=== PATIENT | female | born 1965 | race Caucasian/White ===

== ENCOUNTER → 2023-12-28 06:27 | Day surgery (SDC) | payer OTHER, SELFPAY | LOC: GI 06:27 | PROVIDERS: ATTENDING PHYSICIAN Internal Medicine Gastroenterology | DX: Z12.11 Encounter for screening for malignant neoplasm of colon (principal); D12.2 Benign neoplasm of ascending colon; D12.7 Benign neoplasm of rectosigmoid junction; K57.30 Diverticulosis of large intestine without perforation or abscess without bleeding; K62.1 Rectal polyp | CPT/HCPCS: 45385; 45380; 88305 ==

== ENCOUNTER 2024-01-03 05:41 | Emergency (ER) | payer OTHER, SELFPAY ==
[2024-01-03 05:43] VITALS: BP 130/96
[2024-01-03 07:11] LABS: Urine Albumin 1+ (Neg - Trace); Urine Bilirubin Negative (Negative); Urine Character Very Cloudy (Clear); Urine Color Yellow; Urine Glucose Negative (Negative); Urine Ketone Negative (Negative); Urine Leukocyte 2+ (Negative); Urine Nitrite Negative (Negative); Urine Occult Blood 4+ (Negative); Urine Urobilinogen Negative (Neg - 1+)
--- NOTE | 2024-01-03 07:16 | ED.GENMED ---
History of Present Illness
General
Chief Complaint: Urinary Symptoms
Source: patient
Exam Limitations: none
Time Seen by Provider: 01/03/24 07:06
Travel History
Have you had any contact with someone who has COVID-19?: No
Do you have any symptoms of coronavirus? Fever > 100 degrees, chills, cough, shortness of breath, sore throat, loss of taste or smell, muscle aches, or headache?: No
History of Present Illness
History of Present Illness:
58-year-old female on Eliquis for history of atrial fibrillation requiring recent ablation presents complaining of urinary symptoms for 2 to 3 days with burning and urgency. She notes a sacral pain as well. She denies fevers but does note chills
no sweats. She has a history of UTIs in the past. She does have history of sepsis secondary to UTI in the past. No prior history of kidney stones. She is on metoprolol and levothyroxine otherwise. No other complaints at this time
Past History
Past History
ED Past Medical History: Hypothyroidism
ED Past Surgical History: Tonsilectomy
Social History
Tobacco: Non-smoker
Alcohol: Occasional
Drug: None
Personal:
Living: with family
Employment: Employed
Phy Exam
Physical Exam
Physical Exam:
General: Well-appearing female nontoxic no acute respiratory distress
HEENT: Normocephalic atraumatic neck is supple
Heart: Regular rate and rhythm no murmurs lungs: Clear to auscultation bilaterally no wheeze
Abdomen is soft with mild suprapubic tenderness nondistended no guarding or rebound no costovertebral angle tenderness
Extremities: No cyanosis
Course
Orders/Labs/Results
Orders:
Orders
01/03/24 05:51
Urinalysis Urgent
Date Specimen was Collected: 01/03/24
Time Specimen was Collected: 05:47
Urine Microscopic Urgent
Date Specimen was Collected: 02/20/24
Time Specimen was Collected: 05:47
01/03/24 07:36
Complete Blood Count/With Diff Urgent
Comprehensive Metabolic Panel Urgent
01/03/24 08:08
CefTRIAXone [Rocephin] 1,000 mg IV NOW STA
Abnormal Lab Results
01/03/24 01/03/24
05:51 07:36
RBC 3.57 L 10^6/uL
(4.20-5.40)
Hct 34.1 L %
(37.0-47.0)
MCH 33.6 H pg
(27.0-31.0)
MPV 10.5 H fL
(7.4-10.4)
Absolute Neuts (auto) 6.6 H 10^3/uL
(1.4-6.5)
Absolute Monos (auto) 1.0 H 10^3/uL
(0.1-0.6)
Lymphocytes % 14.6 L %
(20.5-51.1)
Monocytes % 10.4 H %
(1.7-9.3)
Carbon Dioxide 31 H mmol/L
(22-30)
Glucose 100 H mg/dl
(70-99)
AST 38 H U/L
(14-36)
ALT 40 H U/L
(0-35)
Total Protein 5.8 L g/dl
(6.3-8.2)
Urine Occult Blood 4+ A
(Negative)
Ur Leukocyte Esterase 2+ A
(Negative)
Urine RBC 60-70 A /HPF
(0-2)
Urine WBC 26-30 A /HPF
(0-5)
Urine Bacteria Few A
(Negative)
Urine Albumin 1+ A
(Neg - Trace)
01/03/24 07:36
01/03/24 07:36
Vital Signs
Initial and Last Documented VS:
Initial Vital Signs
Temp Pulse Resp BP Pulse Ox
98 F 82 18 130/96 99
01/03/24 05:43 01/03/24 05:43 01/03/24 05:43 01/03/24 05:43 01/03/24 05:43
Last Documented Vital Signs
Temp Pulse Resp BP Pulse Ox
98 F 82 18 130/96 99
01/03/24 05:43 01/03/24 05:43 01/03/24 05:43 01/03/24 05:43 01/03/24 05:43
MDM/Problems Addressed
Differential Diagnosis Includes:
Urinary symptoms. Urinalysis pending will check basic labs. Overall nontoxic vital signs are stable. Question UTI versus kidney stone versus pyelonephritis. Patient's discomfort is quite low over her back not over the kidneys. Do not suspect
kidney related pathology at this point. Hold off on CT
*Critical Care Note
Total Time (30-74mins, 75-104mins- exclusive of procedures): Not Applicable
Update Note
Update Note:
UA with urinary tract infection. White blood cell count is normal. Kidney functions are normal. Patient remains nontoxic with stable vital signs. She does have a history of sepsis secondary to UTIs and is concerned about this. Will give a dose
of Rocephin here and start on Omnicef. No indication for admission at this point
ED Attending Note
-
Portions of this chart may have been created with voice recognition software.� Occasional wrong word or��sound alike� substitutions may have occurred due to the inherent limitations of voice recognition software.
Discharge Plan
Departure
Patient Disposition: Home (Routine Discharge)
Date of Disposition: 01/03/24
Time of Disposition: 08:24
Patient with high blood pressure during this ER visit?: No
Discharge Problem:
Urinary tract infection
Instructions: Urinary Tract Infection, Adult (DC)
Prescriptions:
New
cefdinir 300 mg capsule
300 mg PO BID Qty: 14 0RF
No Action
levothyroxine 125 mcg Tablet
125 mcg PO DAILY
Culturelle 10 billion cell Capsule
1 cap PO QPM
acetaminophen 325 mg Tablet
650 mg PO Q4HPRN PRN (Reason: mild pain/headache/fever) Qty: 30 0RF
Eliquis 5 mg Tablet
5 mg PO BID Qty: 60 3RF
metoprolol succinate 25 mg Tablet Extended Release 24 Hr
25 mg PO DAILY
Slow Fe 137 mg (45 mg iron) Tablet Extended Release
45 mg PO QPM
Citracal
2 cap PO QPM
Collagen And Biotin 6000mg
3 tab PO QPM
Fish Oil
2 cap PO QPM
[facility]
2 tab PO DAILY
pantoprazole [Protonix] 40 mg tablet,delayed release (DR/EC)
40 mg PO DAILY Qty: 14 0RF
Referrals:
Lilly Larry CRNP [Family Provider] -
Activity Restrictions/Additional Instructions:
Drink plenty of fluids. Use antibiotics as directed. Please return here for fever vomiting increased pain or other concerning findings.
Interventions
Interventions:
*Risk Screen - Suicide Last Done: 01/03/24 05:43
*General Assessment Last Done: 01/03/24 06:10
*Neglect/Abuse Screening Last Done: 01/03/24 05:43
ED- Fall Risk Assessment Last Done: 01/03/24 06:10
*ED COVID-19 Vaccine History Last Done: 01/03/24 06:10
ED-Female Genitourinary Assessment Last Done: 01/03/24 06:10
[2024-01-03 07:48] LABS: % Basophils 0.7 % (0-2); % Eosinophils 1.3 % (0-6); % Immature Granulocytes 0.3 % (0-0.5); % Lymphocytes 14.6 % (20.5-51.1); % Monocytes 10.4 % (1.7-9.3); % Neutrophils 72.7 % (42.2-75.2); Absolute Basophils 0.1 10^3/uL (0-0.2); Absolute Eosinophils 0.1 10^3/uL (0-0.7); Absolute Lymphocytes 1.3 10^3/uL (1.2-3.4); Absolute Neutrophils 6.6 10^3/uL (1.4-6.5); Hematocrit 34.1 % (37.0-47.0); Mean Corp Hgb Conc. 35.2 g/dL (33.0-37.0); Mean Corpuscular Hgb 33.6 pg (27.0-31.0); Mean Corpuscular Volume 95.5 fL (81.0-99.0); Mean Platelet Volume 10.5 fL (7.4-10.4); Nucleated Red Blood Cells % 0 %; Platelet Count 204 10^3/uL (130-400); Red Blood Cell Count 3.57 10^6/uL (4.20-5.40); Red Cell Dist. Width 12.7 % (11.5-14.5); White Blood Cell Count 9.1 10^3/uL (4.8-10.8)
[2024-01-03 08:00] LABS: Urine Bacteria Few (Negative)
[2024-01-03 08:01] LABS: Urine White Cell 26-30 /HPF (0-5)
[2024-01-03 08:01] LABS: ALT (SGPT) 40 U/L (0-35); AST (SGOT) 38 U/L (14-36); Albumin 3.6 g/dl (3.5-5.0); Alkaline Phosphatase 63 U/L (38-126); Blood Urea Nitrogen 13 mg/dl (7-17); Calcium 9.3 mg/dl (8.4-10.2); Carbon Dioxide 31 mmol/L (22-30); Chloride 104 mmol/L (98-107); Glucose 100 mg/dl (70-99); Potassium 3.9 mmol/L (3.5-5.1); Sodium 137 mmol/L (135-145); Total Bilirubin 0.7 mg/dl (0.2-1.3); Total Protein 5.8 g/dl (6.3-8.2); eGFR > 60.00
[2024-01-03 08:02] LABS: Urine Red Blood Cell 60-70 /HPF (0-2)
[2024-01-03] MEDS: ROCEPHIN 1000 MG IV (08:14)
[2024-01-03 08:49] VITALS: BP 108/67
== END 2024-01-03 08:52 | disposition home or self-care (01) ==
LOC: EMR 05:41
PROVIDERS: Emergency Medicine; Physician Assistant; EMERGENCY PHYSICIAN Emergency Medicine; FAMILY PHYSICIAN Nurse Practitioner
DX: N39.0 Urinary tract infection, site not specified (principal); M54.50 Low back pain, unspecified; I48.91 Unspecified atrial fibrillation; E03.9 Hypothyroidism, unspecified; Z79.01 Long term (current) use of anticoagulants; Z87.440 Personal history of urinary (tract) infections; Z88.2 Allergy status to sulfonamides; Z91.048 Other nonmedicinal substance allergy status
CPT/HCPCS: 99284; 96374; 80053; 81003; 81015; 85025

== ENCOUNTER → 2024-07-06 13:41 | Outpatient (REF) | payer OTHER, SELFPAY | LOC: RCS 13:41 | PROVIDERS: ATTENDING PHYSICIAN Internal Medicine; FAMILY PHYSICIAN Nurse Practitioner | DX: I48.0 Paroxysmal atrial fibrillation (principal); R00.0 Tachycardia, unspecified; R00.2 Palpitations | CPT/HCPCS: 93306 ==

== ENCOUNTER → 2024-09-04 11:52 | Outpatient (REF) | payer OTHER, SELFPAY | LOC: WDC 11:52 | PROVIDERS: ATTENDING PHYSICIAN Obstetrics & Gynecology; FAMILY PHYSICIAN Nurse Practitioner | DX: Z12.31 Encounter for screening mammogram for malignant neoplasm of breast (principal) | CPT/HCPCS: 77063; 77067 ==

== ENCOUNTER → 2024-09-14 09:40 | Outpatient (REF) | payer OTHER, SELFPAY | LOC: WDC 09:40 | PROVIDERS: ATTENDING PHYSICIAN Obstetrics & Gynecology; FAMILY PHYSICIAN Nurse Practitioner | DX: R92.8 Other abnormal and inconclusive findings on diagnostic imaging of breast (principal) | CPT/HCPCS: 76642; 77065 ==

== ENCOUNTER → 2024-09-19 06:19 | Outpatient (REF) | payer OTHER, SELFPAY | LOC: WDC 06:19 | PROVIDERS: ATTENDING PHYSICIAN Obstetrics & Gynecology; FAMILY PHYSICIAN Nurse Practitioner | DX: R92.1 Mammographic calcification found on diagnostic imaging of breast (principal) | CPT/HCPCS: 88305; 19081; 76098; 88341; 88360; A4648 ==

== ENCOUNTER → 2025-05-22 10:17 | Outpatient (REF) | payer OTHER, SELFPAY | LOC: RAD 10:17 | PROVIDERS: ATTENDING PHYSICIAN Orthopaedic Surgery; FAMILY PHYSICIAN Nurse Practitioner | DX: M79.662 Pain in left lower leg (principal) | CPT/HCPCS: 93971 ==

== ENCOUNTER → 2025-07-16 07:36 | Outpatient (REF) | payer OTHER, SELFPAY | LOC: EMG 07:36 | PROVIDERS: ATTENDING PHYSICIAN Nurse Practitioner | DX: M25.462 Effusion, left knee (principal); M17.12 Unilateral primary osteoarthritis, left knee; R20.0 Anesthesia of skin | CPT/HCPCS: 95886; 95910 ==

== ENCOUNTER → 2025-08-06 06:45 | Outpatient (REF) | payer OTHER, SELFPAY | LOC: RAD 06:45 | PROVIDERS: ATTENDING PHYSICIAN Orthopaedic Surgery; FAMILY PHYSICIAN Nurse Practitioner | DX: M79.89 Other specified soft tissue disorders (principal) | CPT/HCPCS: 93971 ==

== ENCOUNTER → 2025-10-08 14:31 | Outpatient (REF) | payer OTHER, SELFPAY ==
[2025-10-08 16:14] LABS: Hematocrit 38.9 % (37.0-47.0); Hemoglobin 12.7 g/dL (12.0-16.0); Mean Corp Hgb Conc. 32.6 g/dL (33.0-37.0); Mean Corpuscular Volume 99.7 fL (81.0-99.0); Nucleated Red Blood Cells % 0 %; Platelet Count 245 10^3/uL (130-400); Red Cell Dist. Width 13.3 % (11.5-14.5)
[2025-10-08 16:25] LABS: Blood Urea Nitrogen 11 mg/dl (7-17); Calcium 9.8 mg/dl (8.4-10.2); Carbon Dioxide 33 mmol/L (22-30); Chloride 102 mmol/L (98-107); Glucose 86 mg/dl (70-99); Potassium 4.1 mmol/L (3.5-5.1); Sodium 138 mmol/L (135-145); eGFR > 60.00
== END ==
LOC: REG 14:31
PROVIDERS: ATTENDING PHYSICIAN Orthopaedic Surgery; FAMILY PHYSICIAN Nurse Practitioner
DX: Z01.818 Encounter for other preprocedural examination (principal)
CPT/HCPCS: 36415; 80048; 85025; 93005